=== PATIENT | male | born 1940 | race Caucasian/White ===

== ENCOUNTER → 2023-05-24 11:34 | Outpatient (REF) | payer MEDICARE, SELFPAY ==
[2023-05-24 12:51] LABS: % Basophils 0.6 % (0-2); % Immature Granulocytes 0.4 % (0-0.5); % Monocytes 9.2 % (1.7-9.3); % Neutrophils 75.8 % (42.2-75.2); Absolute Monocytes 0.7 10^3/uL (0.1-0.6); Absolute Neutrophils 5.5 10^3/uL (1.4-6.5); Hematocrit 38.4 % (39.0-52.0); Hemoglobin 12.5 g/dL (13.0-18.0); Mean Corp Hgb Conc. 32.6 g/dL (33.0-37.0); Mean Corpuscular Hgb 28.9 pg (27.0-31.0); Mean Corpuscular Volume 88.7 fL (80.0-94.0); Mean Platelet Volume 11.9 fL (7.4-10.4); Nucleated Red Blood Cells % 0 % (-); Platelet Count 138 10^3/uL (130-400); Red Blood Cell Count 4.33 10^6/uL (4.70-6.10); Red Cell Dist. Width 12.7 % (11.5-14.5); White Blood Cell Count 7.3 10^3/uL (4.8-10.8)
== END ==
LOC: RCS 11:34
PROVIDERS: ATTENDING PHYSICIAN Orthopaedic Surgery; FAMILY PHYSICIAN Family Medicine; REFERRING PHYSICIAN Nurse Practitioner Pediatrics
DX: Z01.818 Encounter for other preprocedural examination (principal)
CPT/HCPCS: 36415; 85025; 93005

== ENCOUNTER 2023-06-01 06:32 | Day surgery (SDC) | payer MEDICARE, SELFPAY ==
[2023-06-01] VITALS (10 sets, daily range): BP systolic 134–175; BP diastolic 68–98; BMI 28.1
[2023-06-01] MEDS: CELEBREX 200 MG PO (10:16)
[2023-06-01] MEDS: NORMOSOL-R 1000 IV ×2 (10:17→14:50)
[2023-06-01] MEDS: TYLENOL 1000 MG PO (10:17)
--- NOTE | 2023-06-01 14:30 | CON.HOSP ---
Family Physician
-
Family Physician: INTERVIEWE UNKNOWN - PT NOT
Chief Complaint
-
LUE contracture relief
History of Present Illness
82-year-old male, with past medical history of coronary artery disease, aortic valve stenosis, hyperlipidemia, hypertension, Parkinson's disease, prostate cancer, bladder cancer, who underwent left hand contraction relief surgery by orthopedic on
DOA.
Hospitalist service was consulted to follow along for his several chronic medical conditions.
Pt seen in PACU. Clinically stable. He is slow to respond to questions which apparently is his baseline (has some expressive aphasia)
Medical History
Past Medical History
Past Medical History: Reports Other
Additional Past Medical History:
Coronary artery disease
aortic valve stenosis
hyperlipidemia
hypertension
Parkinson's disease
prostate cancer
bladder cancer
Past Surgical History: Reports Other
Additional Past Surgical History:
LUE contracture relief surgery 05/31
Social History
Living: With Family
Family History
Family History: Reviewed & Not Pertinent
Allergies / Home Medications
Allergies reflects when Allergies were last updated in [employer]
Home Medications with original date entered in [employer]
Allergy/Medication List:
Allergies
Allergy/AdvReac Type Severity Reaction Status Date / Time
latex [Latex] Allergy Itching, Verified 06/01/23 10:05
swelling
Sulfa (Sulfonamide Allergy Swelling Verified 06/01/23 10:05
Antibiotics)
Home Medications
aspirin 81 mg tablet,delayed release 81 mg PO NOON 01/13/13
lisinopril 40 mg tablet 40 mg PO 1400 01/13/13
metoprolol succinate 25 mg tablet,extended release 24 hr 25 mg PO HS 08/03/16
carbidopa 25 mg-levodopa 100 mg tablet 1 tab PO .SEVENTIMESDAILY 05/27/23
ezetimibe 10 mg tablet 10 mg PO NOON 05/27/23
hyoscyamine sulfate 0.125 mg tablet 0.125 mg PO QID 05/27/23
isosorbide mononitrate 30 mg tablet,extended release 24 hr 30 mg PO HS 05/27/23
pravastatin 80 mg tablet 80 mg PO HS 05/27/23
Review of Systems
-
Constitutional: Reports No Symptoms
Physical Exam
Vital Signs
Vital Signs
Temp Pulse Resp BP Pulse Ox
36.6 C 57 15 145/68 92
06/01/23 13:48 06/01/23 14:15 06/01/23 14:15 06/01/23 14:15 06/01/23 14:15
Physical Exam
General: Well Developed, Well Nourished and Comfortable
HEENT: Normocephalic, Moist Mucous Membranes, Atraumatic and Oxygen (2L NC)
Respiratory: Clear and Non Labored Respirations; Negative Accessory Resp Muscle Use
Cardiac: S1/S2, Regular Rhythm and Murmur (systolic); Negative Rub
GI: Soft, Non Tender and Non Distended
Rectal: Deferred by Provider
Musculoskeletal: No Clubbing, No Cyanosis and No Edema
Skin: Negative Rash
Neuro: Awake and Alert
Psych: Calm
Impression / Plan
-
82-year-old male, with past medical history of coronary artery disease, aortic valve stenosis, hyperlipidemia, hypertension, Parkinson's disease, prostate cancer, bladder cancer, who underwent left hand contraction relief surgery by orthopedic on
DOA.
Hospitalist service was consulted to follow along for his several chronic medical conditions.
Pt seen in PACU. Clinically stable. He is slow to respond to questions which apparently is his baseline (has some expressive aphasia)
A/P:
# Left hand contraction relief surgery by orthopedic on DOA 06/01/2023
Post op care per surgery
Continue prior to admission Imdur, lisinopril, Toprol with holding parameters
Chronic medical conditions:
# coronary artery disease
# aortic valve stenosis
# hyperlipidemia
# hypertension
# Parkinson's disease
cont PRODUCT MARKETER Sinemet
Pureed diet for now ( indicated he is on modified diet at home), SPL eval
# prostate cancer
# bladder cancer
DVT ppx: per surgery
FC
--- NOTE | 2023-06-01 15:45 | PTCARENOTE ---
Recieved pt from PACU. AAOx2, denies any pain or discomfort. Oriented to unit, all safety measures in place.
--- NOTE | 2023-06-01 16:32 | PHANOTE ---
06/01/2023, med rec tech, spoke to spouse to obtain pt.'s med. history; per spouse, pt. takes Lisinopril 40 mg Daily; however, after calling pt.'s pharmacy ([address] [address]), they state that he has filled Lisinopril 10 mg
on 11/07/2022 for a 90-day supply with instructions to take one tablet daily. This med. is not in [facility]. Could not confirm this med.
[2023-06-01] MEDS: SINEMET 25-100 1 TABLET PO ×2 (17:34→20:21)
[2023-06-01] MEDS: TYLENOL 650 MG PO ×2 (17:34→20:19)
[2023-06-01] MEDS: COLACE 100 MG PO (20:18)
[2023-06-01] MEDS: SENOKOT 17.1999999999999993 MG PO (20:19)
[2023-06-01] MEDS: PRAVACHOL 80 MG PO (20:19)
[2023-06-01] MEDS: TOPROL XL 25 MG PO (20:19)
[2023-06-01] MEDS: IMDUR (EXTENDED RELEASE) 30 MG PO (20:19)
--- NOTE | 2023-06-01 22:45 | PTCARENOTE ---
Pt found pulling off kip wrap and kerlix. Very agitated and confused, yelling at RN to take off dressing and to get out of his site. Attempted to reorient pt to hospital and that he just had surgery on that hand and we cannot remove the dressings,
but unable to reorient. Reinforced dressing to left hand. POWDER SHOVELER made aware, order for right handed mitt. Applied, and educated pt on importance of not touching surgical site and dressing. Pt less agitated at this time, however still confused. Plan of
care ongoing.
[2023-06-02] MEDS: TYLENOL PO ×2 (00:30→05:20)
[2023-06-02 03:55] VITALS: BP 146/78
[2023-06-02] MEDS: SINEMET 25-100 1 TABLET PO ×3 (05:44→15:19)
[2023-06-02 07:00] VITALS: BP 148/76
--- NOTE | 2023-06-02 07:33 | W.PN.UPDATE ---
Update Note
Progress Note Update
POD#1 s/p left hand contracture release with Dr. Stephens on 06/01/2023.
Patient reports doing very well this morning and has no complaints of pain in his left hand at this time. Afebrile. VSS.
WasStates he is ready for discharge home.
Splint in place of LUE is c/d/i. Able to wiggle fingers outside of the splint. Minimal swelling of digits. Cap refill < 2 sec.
Will plan for PT/OT to see patient today, but looks good for discharge home today. May put some weight on left upper extremity if needed for assistance.
Keep splint clean and dry. F/u in office in 14 days for suture removal.
D/c home later today.
--- NOTE | 2023-06-02 08:30 | PTOTSP ---
Speech Language Pathology
Pt seen for clinical bedside swallow evaluation. When POLICY ADVISER entered room, pt on phone with , who asked to speak to POLICY ADVISER. stated pt has worked with POLICY ADVISER at home extensively in the past and is on pureed foods/thin liquids. She also asked if pt
could go to rehab, which was passed on to MD.
P.O. trials of puree and thin liquids provided, as this is pt's baseline diet. Adequate oral phase with these limited consistencies with no overt signs of aspiration.
Recommend:
(1) Continue baseline diet of IDDSI Level 4 (Puree) and thin liquids.
(2) Aspiration precautions: sit upright, set up assist, slow rate.
(3) Meds as tolerated
(4) POLICY ADVISER to sign off. Please reconsult as indicated.
[2023-06-02 09:28] VITALS: BP 130/73; PULSE 53; O2SAT 96
[2023-06-02 09:33] VITALS: BP 130/73; PULSE 53; O2SAT 96
[2023-06-02] MEDS: TYLENOL 650 MG PO ×3 (10:41→15:18)
[2023-06-02] MEDS: SINEMET 25-100 2 TABLET PO (10:41)
[2023-06-02] MEDS: SENOKOT 17.1999999999999993 MG PO (10:42)
[2023-06-02] MEDS: COLACE 100 MG PO (10:42)
[2023-06-02] MEDS: NORMOSOL-R 1000 IV (10:45)
--- NOTE | 2023-06-02 10:55 | PTCARENOTE ---
R hand mitt removed this am. Patient AAOx3. is now in room with patient.
--- NOTE | 2023-06-02 12:31 | W.PN.HOSP.TC ---
Today's Communication/Plan
-
see A/P
Assessment / Plan
Assessment / Plan
82-year-old male, with past medical history of coronary artery disease, aortic valve stenosis, hyperlipidemia, hypertension, Parkinson's disease, prostate cancer, bladder cancer, who underwent left hand contraction relief surgery by orthopedic on
DOA.
Hospitalist service was consulted to follow along for his several chronic medical conditions.
Pt seen in PACU. Clinically stable. He is slow to respond to questions which apparently is his baseline (has some expressive aphasia)
A/P:
# Left hand contraction relief surgery by orthopedic on DOA 06/01/2023
Post op care per surgery
Continue prior to admission Imdur, lisinopril, Toprol with holding parameters
PT OT post op recc SNF for continued balance training
CM on board to assist SNF disposition
Chronic medical conditions:
# coronary artery disease
# aortic valve stenosis
# hyperlipidemia
# hypertension
# Parkinson's disease
cont PARTS DRIVER Sinemet
Cont Pureed diet/ thin liquid as from PARTS DRIVER
# prostate cancer
# bladder cancer
DVT ppx: per surgery
FC
DW at bedside
Anticipated Discharge: Today
Subjective/Interval History
-
Date of Service: June 02, 2023
Objective Data
-
Labs:
Laboratory Results
06/02/23
07:30
WBC Pending
Hgb Pending
Hct Pending
Plt Count Pending
Sodium Pending
Potassium Pending
Chloride Pending
Carbon Dioxide Pending
BUN Pending
Creatinine Pending
Glucose Pending
Calcium Pending
Vital Signs:
Vital Signs
Temp Pulse Resp BP Pulse Ox
36.8 C 57 18 148/76 97
06/02/23 07:00 06/02/23 07:00 06/02/23 07:00 06/02/23 07:00 06/02/23 07:00
I&O
06/01/23 06/02/23 06/03/23
06:59 06:59 06:59
Intake Total 100 / 100
Balance 100 / 100
Review of Systems
-
All other systems: Reviewed and negative
Physical Exam
-
General: Well Developed, No Apparent Distress, Comfortable and Appears Chronically Ill; Negative Respiratory Distress
HEENT: Normocephalic, Atraumatic, Nose Appears Normal and Ears Appear Normal; Negative Oxygen
Respiratory: Clear to Auscultation and Non Labored Respirations; Negative Accessory Resp Muscle Use
Cardiac: Regular Rhythm and S1/S2
GI: Soft, Nontender, Nondistended and Normal Bowel Sounds
Skin: Warm and Dry
Neuro: Awake and Alert
Psych: Calm
[2023-06-02] MEDS: ASPIR LOW (ENTERIC COATED) 81 MG PO (12:56)
[2023-06-02 13:30] LABS: Hemoglobin 11.9 g/dL (13.0-18.0); Mean Corp Hgb Conc. 32.2 g/dL (33.0-37.0); Mean Corpuscular Hgb 28.5 pg (27.0-31.0); Mean Corpuscular Volume 88.7 fL (80.0-94.0); Mean Platelet Volume 12.9 fL (7.4-10.4); Platelet Count 157 10^3/uL (130-400); Red Blood Cell Count 4.17 10^6/uL (4.70-6.10); White Blood Cell Count 9.4 10^3/uL (4.8-10.8)
[2023-06-02 13:48] LABS: Blood Urea Nitrogen 21 mg/dl (9-20); Calcium 8.1 mg/dl (8.4-10.2); Carbon Dioxide 26 mmol/L (22-30); Chloride 106 mmol/L (98-107); Estimated Creatinine Clearance 83 ml/min; Glucose 118 mg/dl (70-99); Potassium 4.2 mmol/L (3.5-5.1); Sodium 136 mmol/L (135-145); eGFR > 60.00
--- NOTE | 2023-06-02 14:06 | CM ---
Addendum entered by Francy Rodriguez RN 06/02/23 15:23:
[facility]
As per Mary pt accepted with SNF waiver. notified. Pt is his own wheelchair . WC van set up with [facility]. given # [phone] for payment for wc van. agrees with dc to SNF via wc van.
[facility]
Report [phone]

PLAN To [facility]
Original Note:
Alert awake patient who lives with his Patricia who lives in a 1 story home with ramp to enter and bed and bathroom on first floor. He is assisted in all activities of daily living.He has a wheelchair walker grab bars. 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
and use [employer] bus.
PT OT recommended SNF Max assist of 2.
Pt is under post surgical recovery. Spoke with Mary at [facility] with Medicare.
Explained all to she requested [facility] and [facility]Hallie said [facility] has no beds .
Kaylah is checking [facility]
Had VN hx Has [facility] now/SNF history Hx.
Pharmacy [facility]
PCP DR Agustin Augustin
PLAN SNF if bed located and waiver accepted
[2023-06-02 15:00] VITALS: BP 138/73
[2023-06-02] MEDS: ZESTRIL 40 MG PO (15:19)
[2023-06-02 15:28] VITALS: BMI 28.1
--- NOTE | 2023-06-02 16:49 | W.DS.TRANS ---
DC Summary - General Surgery Physician Assistant
-
Discharge Instructions:
Sleep Apnea Risk Intermediate
Discharge Diagnosis/Procedures S/p left hand contracture release
Diet Other diet
Additional Diets pureed diet with thin liquid
Activity As tolerated
Additional Activity Limit weight bearing on left arm, but may put
weight on it in the splint for transfers as
needed.
Driving Restrictions As prior to admission
Bathing Restrictions Keep splint on left upper extremity dry.
Instructions:
Stand-Alone Forms:
Changes to Home Medications: No
Discharge Medications:
DC Medications w/original date entered in [employer]
aspirin 81 mg tablet,delayed release 81 mg PO QPM 01/13/13
lisinopril 40 mg tablet 40 mg PO DAILY 01/13/13
metoprolol succinate 25 mg tablet,extended release 24 hr 25 mg PO HS 08/03/16
carbidopa 25 mg-levodopa 100 mg tablet 1 tab PO 5/D@0600,12,15,18,21 05/27/23
ezetimibe 10 mg tablet 10 mg PO DAILY@1300 05/27/23
hyoscyamine sulfate 0.125 mg tablet 0.125 mg PO QID 05/27/23
isosorbide mononitrate 30 mg tablet,extended release 24 hr 30 mg PO HS 05/27/23
pravastatin 80 mg tablet 80 mg PO QPM 05/27/23
carbidopa 25 mg-levodopa 100 mg tablet 2 tab PO DAILY@0900 06/01/23
diclofenac sodium 1 applic topical HS apply to B/L knees 06/01/23
triamcinolone acetonide 32 mg intra-articular suspension ext.releas (Zilretta) 32 mg intra-articular [id number] 06/01/23
acetaminophen 325 mg tablet 650 mg PO Q4HWA moderate pain 10 days #120 tabs 06/02/23
acetaminophen 325 mg tablet 650 mg PO SDS-[id number] PRN mild pain 30 days #30 tabs 06/02/23
Home Medication Changes
Pending Results: No
== END 2023-06-02 16:09 ==
LOC: SDS 06:32
PROVIDERS: ATTENDING PHYSICIAN Orthopaedic Surgery; CONSULT PHYSICIAN Internal Medicine
DX: G20.B1 Parkinson's disease with dyskinesia, without mention of fluctuations (principal); M24.542 Contracture, left hand
CPT/HCPCS: 25310 ×2; 64721; 80048; 85027; 92610; 97163; 97167

== ENCOUNTER 2023-08-23 18:16 | Inpatient (IN) | payer MEDICARE, SELFPAY ==
[2023-08-23 18:24] VITALS: BP 167/123
[2023-08-23 18:33] VITALS: BP 150/63
--- NOTE | 2023-08-23 18:33 | HPS.HSE ---
Family Physician
-
Family Physician: Agustin Augustin
Chief Complaint
-
Aortic stenosis, transfer from [facility]
History of Present Illness
82-year-old male who is a transfer from [facility] was sent for severe aortic stenosis. Also had episodes of nonsustained SVT. He was treated with amiodarone after second dose he developed a rash to his lower legs was given IV Benadryl
there which seemed to improve. It was also noted he had thrombocytopenia. Patient is alert and oriented to name and current place but not history he does have past medical history of dementia and Parkinson's disease he does have baseline slurred
speech with lower lip swelling. He denies headache, chest pain, palpitations, shortness of breath, abdominal pain, nausea, vomiting, diarrhea, urinary symptoms.
Past medical history CAD, severe aortic valve stenosis, NSVT August 2023 [facility] rash with amiodarone HTN, HLD, Parkinson's disease on pureed Diet/thin liquids, prostate cancer, bladder CA
Medical History
Past Medical History
Past Medical History: Reports Other
Additional Past Medical History:
CAD, aortic valve stenosis, HTN, HLD, dementia, Parkinson's disease on pureed Diet/thin liquids, prostate cancer, bladder CA
Past Surgical History: Reports Other
Additional Past Surgical History:
Left hand contracture repair 06/01/2023
Spinal surgery
Social History
Tobacco: Non-smoker
Alcohol: None
Personal: ( with history of dementia)
Living: With Family ()
Employment: Retired
Family History
Family History: Unable to Obtain
Allergies / Home Medications
Allergies reflects when Allergies were last updated in [facility]
Home Medications with original date entered in [employer]
Allergy/Medication List:
Allergies
Allergy/AdvReac Type Severity Reaction Status Date / Time
latex [Latex] Allergy Itching, Verified 06/01/23 10:05
swelling
Sulfa (Sulfonamide Allergy Swelling Verified 06/01/23 10:05
Antibiotics)
Home Medications
aspirin 81 mg tablet,delayed release 81 mg PO QPM 01/13/13
lisinopril 40 mg tablet 40 mg PO DAILY 01/13/13
metoprolol succinate 25 mg tablet,extended release 24 hr 25 mg PO HS 08/03/16
carbidopa 25 mg-levodopa 100 mg tablet 1 tab PO 5/D@0600,12,15,18,21 05/27/23
ezetimibe 10 mg tablet 10 mg PO DAILY@1300 05/27/23
hyoscyamine sulfate 0.125 mg tablet 0.125 mg PO QID 05/27/23
isosorbide mononitrate 30 mg tablet,extended release 24 hr 30 mg PO HS 05/27/23
pravastatin 80 mg tablet 80 mg PO QPM 05/27/23
carbidopa 25 mg-levodopa 100 mg tablet 2 tab PO DAILY@0900 06/01/23
diclofenac sodium 1 applic topical HS apply to B/L knees 06/01/23
triamcinolone acetonide 32 mg intra-articular suspension ext.releas (Zilretta) 32 mg intra-articular [id number] 06/01/23
acetaminophen 325 mg tablet 650 mg (2 x 325 mg) PO Q4HWA moderate pain 10 days #120 tabs 06/02/23
acetaminophen 325 mg tablet 650 mg (2 x 325 mg) PO [id number] PRN mild pain 30 days #30 tabs 06/02/23
Medication reconciliation to be updated by nurse if she is able to obtain from patient's family
Review of Systems
-
History Source: Patient and Other (Transfer records from [facility])
A 12 point ROS was completed and negative except as noted: Yes
Constitutional: Denies Fever or Chills
EENT: Denies Sore Throat or Runny Nose
Respiratory: Denies Cough or Trouble Breathing
Cardiac: Denies Chest Pain, Diaphoresis, Palpitations or Syncope
Abdomen/GI: Denies Abdominal Pain, Nausea, Vomiting, Diarrhea, Constipated, Bloody Stools or Black Stools
: Denies Dysuria, Frequency, Flank Pain, Incontinence, Difficulty Voiding or Urgency
Musculoskeletal: Denies Joint Pain or Edema
Skin: Denies Itching or Rash
Neurological: Denies Dizzy, Headache or Weakness
Hematologic/Lymphatic: Reports No Symptoms
Psych: Reports Calm
Physical Exam
Physical Exam
General: Comfortable and Conversant; No Pain or Fever
HEENT: NormoCephalic, Anicteric, Moist mucous membranes, PERRLA, [place] Conjunctivae, No Ptosis and Other (Slurring of speech chronic, lower lip edema ? Chronic)
Respiratory: Clear; No Wheezes, Rales or Rhonchi
Cardiac: S1/S2, Regular Rhythm and Murmur (For over 6 systolic); No Rub, Gallop or Peripheral Edema
Breast: Deferred by me
GI: Soft, Non Tender, Non Distended, Normal Bowel Sounds and No Hepatosplenomegaly
Rectal: Deferred by Provider
Genito-urinary: Deferred by me
Musculoskeletal: No Clubbing, No Cyanosis and No Edema
Skin: Warm and Dry
Neuro: Awake, Alert, Oriented (To name, place but not history) and No Sensory Deficits; No Slurred Speech, Facial Droop or Tremors
Psych: Calm
Impression/Plan
-
Impression/plan:
Admit to IVU
#Severe aortic stenosis
-N.p.o. for cardiac cath in a.m.
-Consult CBC cardiology
-Continue Imdur 30 mg at bedtime, metoprolol succinate 25 mg at bedtime
-Check BMP/mag
-Check EKG
2D echo 08/21/2023: EF 55 to 60%, no wall abnormalities, moderate/severe dilated LA, severe AAS peak mean gradients 87 mmHg 4/55.6 mmHg, mild to moderate MR, mild TR
2D echo 09/08/2022: EF 65-70%, hyperdynamic LV wall motion, severe calcific aortic stenosis with mean gradient 46 mmHg
#Hx nonsustained VT episodes August 2023 at [facility]
-Patient was started on amiodarone had development of rash to legs was given Benadryl at prior hospital which is currently disappeared
#Recent thrombocytopenia
Pending PLT
#HTN�benign
Continue lisinopril 40 mg daily, metoprolol succinate 25 mg at bedtime, Imdur 30 mg at bedtime with hold parameters
#HLD
-Check lipid profile
-Continue Zetia 10 mg daily, pravastatin 80 mg every afternoon
#Parkinson's disease on pur�ed diet/thin liquids per May chart
-Speech swallow eval
-Continue carbidopa levodopa
#Dementia Hx
Patient oriented to name, place but not history has chronic slurring of speech
#Hx prostate cancer per chart
#Hx bladder CA per chart
DVT prophylaxis
-Subcu Lovenox pending Hgb and platelets
Full code per transfer chart from [facility]
[2023-08-23 18:34] VITALS: BMI 23.6
--- NOTE | 2023-08-23 18:39 | W.PN.UPDATE ---
Update Note
Progress Note Update
I saw and examined the patient.
The FITTING ROOM ATTENDANT or PA's note was reviewed and I agree with the note.
Comment: 82 y/o M who presents as a direct admission for evaluation for TAVR for his severe . Was at [facility] and had a syncopal episode due to NSVT. Of note, pt had allergic rxn to . Case discussed with Dr. Franks on the phone. Due to the
patient's advanced Parkinson's the patient's family was not interested in aggressive care until recently.
150/63, 52, 18, 98.9 F, 96% RA
NAD, awake and alert, appears chronically ill
donald, reg rhythm, normal S1/S2, 4/6 RAUL
CTAB anteriorly
CN2-12 intact, resting, pill rolling tremor
Severe :
-for cardiac cath tomorrow (pre-TAVR eval)
-cardiology c/s
-tele
-check BMP, Mg
-check ECG
Essential HTN:
-cont ACEi/BB/Imdur (with holding parameters)
Parkinson's disease:
-cont Sinemet
Discussed with Dr. Franks
FULL/Lovenox (pending Hb, plts, etc) + SCDs
--- NOTE | 2023-08-23 19:00 | PTCARENOTE ---
pt admitted as transfer from [facility]. admitted to room 2250. Pt AAOx2- disoriented to time stated it was the wrong year but able to state month. history of parkinsons, speech garbled, difficult to understand. left hand/fingers contracted. SB on
telemetry heart rate in 50s. pulses palpable. trace lower extremity edema. pt on room air, sat 96%. lung sounds diminished. active bowel sounds. incontinent of urine- male external device intact. two small open areas noted on sacrum/ischum- wound
consult placed. see worklist for full nursing assessment and interventions. hospitalist at bedside to assess.
[2023-08-23 19:08] LABS: Hematocrit 36.7 % (39.0-52.0); Hemoglobin 12.2 g/dL (13.0-18.0); Mean Corp Hgb Conc. 33.2 g/dL (33.0-37.0); Mean Corpuscular Volume 87.2 fL (80.0-94.0); Mean Platelet Volume 12.5 fL (7.4-10.4); Platelet Count 104 10^3/uL (130-400); Red Blood Cell Count 4.21 10^6/uL (4.70-6.10); Red Cell Dist. Width 13.7 % (11.5-14.5); White Blood Cell Count 4.7 10^3/uL (4.8-10.8)
[2023-08-23 19:19] LABS: Blood Urea Nitrogen 16 mg/dl (9-20); Calcium 8.5 mg/dl (8.4-10.2); Carbon Dioxide 28 mmol/L (22-30); Chloride 105 mmol/L (98-107); Estimated Creatinine Clearance 68 ml/min; Glucose 128 mg/dl (70-99); Potassium 4.4 mmol/L (3.5-5.1); Sodium 140 mmol/L (135-145); eGFR > 60.00
[2023-08-23] MEDS: NSS 1000 IV (19:51)
[2023-08-23 19:53] VITALS: BP 162/70
--- NOTE | 2023-08-23 19:58 | PTCARENOTE ---
pt unable to provide updated medication list at this time- hospitalist aware
[2023-08-23] MEDS: SINEMET 25-100 1 TABLET PO (20:30)
[2023-08-23] MEDS: PRAVACHOL 80 MG PO (20:30)
[2023-08-23 22:10] VITALS: BP 143/83
[2023-08-24] VITALS (11 sets, daily range): BP systolic 85–164; BP diastolic 57–77; PULSE 53; O2SAT 97; BMI 23.6
[2023-08-24 06:01] LABS: % Basophils 0.4 % (0-2); % Eosinophils 2.9 % (0-6); % Immature Granulocytes 0.4 % (0-0.5); % Lymphocytes 27.8 % (20.5-51.1); % Monocytes 6.1 % (1.7-9.3); % Neutrophils 62.4 % (42.2-75.2); Absolute Eosinophils 0.2 10^3/uL (0-0.7); Absolute Lymphocytes 1.5 10^3/uL (1.2-3.4); Absolute Monocytes 0.3 10^3/uL (0.1-0.6); Absolute Neutrophils 3.5 10^3/uL (1.4-6.5); Hematocrit 41.2 % (39.0-52.0); Hemoglobin 13.2 g/dL (13.0-18.0); Mean Corpuscular Hgb 28.9 pg (27.0-31.0); Mean Corpuscular Volume 90.2 fL (80.0-94.0); Mean Platelet Volume 12.8 fL (7.4-10.4); Nucleated Red Blood Cells % 0 % (-); Platelet Count 105 10^3/uL (130-400); Red Blood Cell Count 4.57 10^6/uL (4.70-6.10); Red Cell Dist. Width 13.6 % (11.5-14.5); White Blood Cell Count 5.5 10^3/uL (4.8-10.8)
[2023-08-24 06:22] LABS: ALT (SGPT) < 10 U/L (0-50); AST (SGOT) 20 U/L (17-59); Albumin 3.4 g/dl (3.5-5.0); Blood Urea Nitrogen 15 mg/dl (9-20); Calcium 8.7 mg/dl (8.4-10.2); Carbon Dioxide 24 mmol/L (22-30); Estimated Creatinine Clearance 68 ml/min; Glucose 90 mg/dl (70-99); Total Bilirubin 0.5 mg/dl (0.2-1.3); Total Cholesterol 92 mg/dl (50-199); Total Protein 5.8 g/dl (6.3-8.2); Triglyceride 65 mg/dl (10-149); Very Low Density Lipoprotein 13 mg/dl (0-30); eGFR > 60.00
[2023-08-24 06:31] LABS: Alkaline Phosphatase 69 U/L (38-126); Chloride 108 mmol/L (98-107); HDL Cholesterol 42 mg/dl; LDL Cholesterol, Calculated 37 mg/dl; Potassium 4.2 mmol/L (3.5-5.1); Sodium 140 mmol/L (135-145)
[2023-08-24] MEDS: SINEMET 25-100 1 TABLET PO ×5 (06:48→21:02)
--- NOTE | 2023-08-24 08:00 | W.PN.HOSP.TC ---
Today's Communication/Plan
-
see bold
Assessment / Plan
Assessment / Plan
Gen: NAD, Awake and alert, appears chronically ill
Eyes: EOMI, PERRLA, no scleral icterus.
Neck: supple.
CV: donald, reg rhythm, +S1/S2, 2/6 RAUL
Resp: CTAB anteriorly, no rales, wheezes, or rhonchi.
Abd: +BS, soft, NT, ND
Skin: No rashes.
Neuro: CN 2-12 intact, non-focal.
Psych: Normal mood and affect.
Echo 09/08/2022: EF 65-70%, hyperdynamic LV wall motion, severe calcific aortic stenosis with mean gradient 46 mmHg
Severe :
-for cardiac cath today (pre-TAVR eval)
-cardiology c/s
-tele
Other problems:
Essential HTN: cont BB/Imdur (with holding parameters)
Parkinson's disease with dementia: cont Sinemet
Chronic thrombocytopenia
HLD: cont statin/Zetia
Discussed with Dr. Franks
FULL/Lovenox + SCDs
Anticipated Discharge: > 48 hours
Subjective/Interval History
-
Date of Service: August 24, 2023
Denies CP/SOB.
Objective Data
-
Labs:
Laboratory Results
08/24/23
05:53
WBC 5.5
Hgb 13.2
Hct 41.2
Plt Count 105 L
Sodium 140
Potassium 4.2
Chloride 108 H
Carbon Dioxide 24
BUN 15
Creatinine 0.8
Glucose 90
Calcium 8.7
Total Bilirubin 0.5
AST 20
ALT < 10
Alkaline Phosphatase 69
Vital Signs:
Vital Signs
Temp Pulse Resp BP Pulse Ox
98.2 F 49 20 107/77 97
08/24/23 07:08 08/24/23 06:30 08/24/23 07:08 08/24/23 05:47 08/24/23 07:08
I&O
08/23/23 08/24/23 08/25/23
06:59 06:59 06:59
Output Total 200 / 200
Balance -200 / -200
--- NOTE | 2023-08-24 08:14 | CON.CAR ---
Addendum entered and electronically signed by Tram Franks MD 08/24/23 10:03:
I saw and examined the patient.
The SUPERVISOR ERECTION SHOP's note was reviewed and I agree with the note.
Comment: No complaints of chest pain, lightheadedness or shortness of breath. 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 He has progressive Parkinson's
disease, with increasing immobility and dementia. He is unreliable historian due to his dementia. I reached out to the point of contact listed in the chart as Suzanne Zaragozatobi who is his opuwnqya-ar-gus. She reports to me that his sons are the pol[place]
of deputy attorney general but she person to be contacted. It was a surprise to me that she did was not aware of his severe valvular disease. Have had multiple conversations with Oskar Gabe and Patriciavenancio Rodriguez as an outpatient. Apparently complained of kidney
pain to his family over the weekend and presented to [facility]. [facility] reports a single episode of nonsustained ventricular tachycardia for 38 beats. It does not appear this was symptomatic. He had a trial of amiodarone x 2
and had rashes and welts to both his infusions. He is sent to here to determine whether or not he should have a catheterization. In the outpatient setting, he has decided that he did not want any evaluation or further invasive treatments for his
aortic stenosis Currently, he is in sinus bradycardia with only idioventricular rhythm seen on the monitor. He has no chest pain or pressure. Echocardiogram at [place] did show severe progressive aortic stenosis with a normal LVEF. On exam he
is cachectic with prominent zygomatic arches, no buccal fat and bitemporal wasting. He is lipsmacking with his tongue. He has a regular rate and rhythm with a normal S1-S2 2 out of 6 crescendo decrescendo murmur in the right upper sternal border.
Lungs are clear to auscultation. Abdomen is soft nondistended. Hands show extensive contractures and deformity. Overall, it is striking to me the progression of Oskar's Parkinson's and cachexia. He is 40 pounds down from when I last saw him in
mid January. Suzanne states he is mostly in the wheelchair and refuses to walk for the family but does work with PT. He recently sold his two-story house and is now living in a 1 floor trailer and an over 55 community with his . I explained to
her the difficult situation as his progressive Parkinson's disease and weight loss are very concerning. He is not a candidate for open heart surgery and definitively the family would not want this. I discussed that a catheterization at this
moment, would not likely change his ultimate outcome. I think his mortality with his Parkinson's is likely less than 1 year given his significant weight loss. And this would limit his candidacy for TAVR. However, if they would like an official
evaluation by the TAVR team this could be arranged. In regard to his NSVT, none further on the monitor. He did not tolerate amiodarone. Sotalol is contraindication with his significant baseline bradycardia. For now we will continue beta-toby.
In regards of his goals of care, she thinks the family wants to limit his suffering, so treating NSVT with aggressive treatments, does not seem to go along with this goal of care. Currently is full code in our computer, there is a living will from
2012 that states DNR. She is uncertain of what the ultimate goal is right now. For now he will need to remain full code. She will converse with her family and hopefully we can come up with a better long-term care plan for him by tomorrow. I can
keep n.p.o. after midnight in the event ongoing arrhythmias are seen and they wish to pursue invasive evaluations. However again I do not think this is in the best interest of the patient. Hospice evaluation seems reasonable. I discussed these
thoughts with Suzanne and Dr. Levine. Time in our conversation was 45 minutes time in his care is 63 minutes.
Original Note:
Consultation
Consultation Request
Date/Time Consultation Requested: 08/23/2023 18:39
Date/Time Consultation Performed: 08/24/2023 08:30
Requesting Provider: SISSY Delgado
Performing Provider: SISSY Monroe for Dr. Franks
Reason for Consultation: NSVT
Medical History
-
Chief Complaint: Weakness
History of Present Illness:
Oskar Rodriguez is an 82-year-old male (known to Dr. 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
what sounds to be a chief complaint of weakness. Reports reflect a 38 beat run of NSVT. Rate not documented. He was found to have a peak troponin of 44 , then trended to 41 (type of troponin unknown). There are no reports of chest pain.
He saw Dr. Franks in the outpatient setting in 01/2023. The plan was for no TAVR and DNR status.
Upon exam, Mr. Rodriguez is very pleasant. He believes it is 1969. He knows he is in [facility]. He does not recall ever being in [place]. He does not know why he is here. He knows the month and day he was born but not the year.
Past Medical History
Past Medical History: CAD, Cancer (Prostate), HTN, Hypercholesterolemia, Valvular Disease (severe aortic stenosis) and Other (Parkinson's disease, dementia)
Past Surgical History: Orthopedic and Urological (Radial perineal prostatectomy [2013])
Social History
Tobacco: Non-Smoker
Alcohol: None
Drug: None
Personal:
Living: With Family
Employment: Retired
Family History
Family History: Reviewed & Not Pertinent
Allergies / Home Medications
Allergy/AdvReac Type Severity Reaction Status Date / Time
amiodarone Allergy Rash Verified 08/24/23 07:58
latex [Latex] Allergy Itching, Verified 06/01/23 10:05
swelling
Sulfa (Sulfonamide Allergy Swelling Verified 06/01/23 10:05
Antibiotics)
�Medication �Instructions �Recorded �Confirmed �Type
aspirin 81 mg tablet,delayed 81 mg PO QPM Blood Clot 01/13/13 06/01/23 History
release Prevention/Tx
lisinopril 40 mg tablet 40 mg PO DAILY 01/13/13 08/03/16 History
metoprolol succinate 25 mg 25 mg PO HS Heart Disease/Condition 08/03/16 06/01/23 History
tablet,extended release 24 hr
carbidopa 25 mg-levodopa 100 mg 1 tab PO 5/D@0600,12,15,18,21 05/27/23 06/01/23 History
tablet Neurological Condition
ezetimibe 10 mg tablet 10 mg PO DAILY@1300 High 05/27/23 06/01/23 History
Cholesterol
hyoscyamine sulfate 0.125 mg tablet 0.125 mg PO QID 05/27/23 06/01/23 History
isosorbide mononitrate 30 mg 30 mg PO HS 05/27/23 06/01/23 History
tablet,extended release 24 hr
pravastatin 80 mg tablet 80 mg PO QPM High Cholesterol 05/27/23 06/01/23 History
carbidopa 25 mg-levodopa 100 mg 2 tab PO DAILY@0900 Neurological 06/01/23 06/01/23 History
tablet Condition
diclofenac sodium 1 applic topical HS apply to B/L 06/01/23 06/01/23 History
knees
triamcinolone acetonide 32 mg 32 mg intra-articular [id number] 06/01/23 06/01/23 History
intra-articular suspension
ext.releas (Zilretta)
acetaminophen 325 mg tablet 650 mg (2 x 325 mg) PO Q4HWA 06/02/23 Rx
moderate pain 10 days #120 tabs
acetaminophen 325 mg tablet 650 mg (2 x 325 mg) PO SDS-Q4HPRN 06/02/23 Rx
PRN mild pain 30 days #30 tabs
Review of Systems
-
Unable to obtain full review of systems at this time due to: Dementia
History Source: Patient
All other systems: Negative unless noted
Respiratory: No Symptoms
Cardiac: No Symptoms
Abdomen/GI: No Symptoms
Physical Exam
Vital Signs
Temp Pulse Resp BP Pulse Ox
98.2 F 49 20 107/77 97
08/24/23 07:08 08/24/23 06:30 08/24/23 07:08 08/24/23 05:47 08/24/23 07:08
Lab Results
08/24/23 05:53
08/24/23 05:53
Physical Exam
General: No Apparent Distress and Comfortable
HEENT: Normocephalic, Anicteric and Moist Mucous Membranes
Respiratory: Clear and Non Labored Respirations
Cardiac: S1/S2 and Irregular Rhythm (III/); Negative Peripheral Edema
Breast: Deferred by me
GI: Soft, Non Tender, Non Distended and Normal Bowel Sounds
Rectal: Deferred by Provider
Genito-urinary: No Costovertebral Tender
Musculoskeletal: No Clubbing, No Cyanosis and No Edema
Skin: Warm and Dry
Neuro: AO x 3
Hematologic/Lymphatic: No Lymphadenopathy
Psych: Calm
Impression / Plan
-
Abnormal troponin, perhaps nonischemic myocardial injury
-Troponin peaked at 44 at [facility]
-He is chest pain-free with a stable EKG, this could be in the setting of severe aortic valve disease
-Update troponin
Aortic stenosis, severe
-Peak/mean gradients of 87/55 mmHg
-He denies shortness of breath
-He does not appear to be in heart failure
-TAVR was declined in the outpatient setting
NSVT, reported on [facility] transfer documentation
-He was given amiodarone which caused a rash, it has since been discontinued
-No NSVT seen on telemetry, some idioventricular rhythm
CAD
-Stable without chest pain
-[facility] 2017: 30% proximal circumflex, pRCA occlusion that is well collateralized
-Continue isosorbide mononitrate
Dementia, not oriented to time (he believes it is 1970), he cannot recall the year he was born
Parkinson's disease, on Sinemet, hand contractures with contracture release 05/2023
Unintentional weight loss, 40 pound loss since 01/2023
Prostate cancer S/P RPP (2012), on Lupron for biochemical recurrence
Data:
Transthoracic echocardiogram 08/21/2023 (report from [facility]):
EF 55 to 60%. Moderate to severely dilated LA. Aortic valve is thickened and calcified with severe aortic valve stenosis. Peak/mean gradients of 87.9/55.6 mmHg with trace to mild aortic regurgitation. ANGEL 0.75 cm. Mild tricuspid regurgitation.
Data Reviewed
-
EKG: Report Reviewed by me (Sinus bradycardia, left axis deviation, rate 55, inverted inferior T waves)
Medical Tests (Nuc Med, Echo etc): Report Reviewed by me (Prior echocardiogram as above)
Labs: Labs Reviewed by me
Old Records: Reviewed ([facility] records)
[2023-08-24] MEDS: SINEMET 25-100 2 TABLET PO (08:46)
[2023-08-24] MEDS: LOW STRENGTH ASPIRIN 324 MG PO (10:14)
[2023-08-24 10:43] LABS: Troponin I 0.014 ng/ml
--- NOTE | 2023-08-24 11:20 | CM ---
Addendum entered by Gris Mann RN 08/24/23 14:27:
Family wanting Hospice. Referral sent to Hospice.
Original Note:
Chart reviewed. Patient was a transfer from [facility] for a TAVR workup. Patient is total care assistance, lives with his in a modular home, [address], which they recently moved to. Currently there is 2 JOANNA, but they are in the
process of putting in a ramp. Patient is currently receiving PT/OT through [facility], but is interested in [facility]. Referral placed to [facility]. Family knows they can not use [facility] while receiving services through [facility]. Family wanting to
continue with [facility]. Plan is for the patient to return home with [facility]. CM to follow
[2023-08-24] MEDS: ZETIA 10 MG PO (12:21)
--- NOTE | 2023-08-24 12:30 | CHAP ---
Father Fredrick Warren of [facility] in [place] gave Oskar the Sacrament of the Sick. Time uncertain.
--- NOTE | 2023-08-24 12:55 | W.PN.UPDATE ---
Update Note
Progress Note Update
I met with the family including his Patricia, son Oskar, son Fredrick, and [id number]. We discussed the prognosis of severe , progressive and severe parkinsonism with a 40 pound weight loss in the last 6 months. He has limited
functional status. He has dementia. I do not think doing more cardiac procedures is indicated as I think his mortality in the next year is high. We discussed the patient's wishes after we reviewed his living will from 2013--DNR, no feeding tubes,
no aggressive measures. I think the most reasonable plan consistent with his wishes is a hospice evaluation. They are agreeable. Will make DNR.
--- NOTE | 2023-08-24 14:21 | PTOTSP ---
Dysphagia Evaluation
Patient with history of oral/pharyngeal dysphagia related to Parkinson's disease and dementia. He is currently at his baseline level of function without signs concerning for aspiration complications but has had a significant weight loss (40 pound
weight loss in the last 6 months). Family meeting with hospice.
Recommend:
1. IDDSI Level 6 Soft/Bite Sized, IDDSI Level 0 Thin Liquids
2. Medications - whole 1 at a time with puree
3. Supervision (given dementia), assist with meal tray set up (given parkinson's with tremors)
4. Strategies: upright to 90 degrees, small single sips/bites, slow rate
5. No further dysphagia therapy warranted at this time. Please reconsult as appropriate.
--- NOTE | 2023-08-24 14:42 | HOSPNOTE ---
Met with family and they are all in agreement to take patient home on hospice services. OOH DNR will be needed and ambulance transport needed. Equipment was ordered and will be delivered. Family is looking into caregivers.
--- NOTE | 2023-08-24 15:29 | PTCARENOTE ---
Pt diaphoretic. VSS. PO temp 98.5. Will monitor.
--- NOTE | 2023-08-24 15:33 | PTCARENOTE ---
Pt noted to have runs of AIVR on the motorized squad captain. Will monitor.
--- NOTE | 2023-08-24 16:54 | PTCARENOTE ---
Pt compained that the rashs on BLE started to itch after his 'sweaty' episode. MD notified. Orders noted.
[2023-08-24] MEDS: BENADRYL 25 MG PO (17:12)
[2023-08-24] MEDS: LOVENOX 40 MG SC (17:12)
--- NOTE | 2023-08-24 17:32 | PTCARENOTE ---
Pt's rash has spread to multiple sites. Benadryl given. Will monitor.
[2023-08-24] MEDS: PRAVACHOL 80 MG PO (18:23)
[2023-08-25] MEDS: BENADRYL 25 MG PO (01:45)
[2023-08-25 04:00] VITALS: BP 150/83
[2023-08-25] MEDS: SINEMET 25-100 1 TABLET PO (04:27)
--- NOTE | 2023-08-25 04:37 | PTCARENOTE ---
Pt awake intermittently t/o the night. Pt reports complaints of back being itchy. WING COVERER notified, order obtained for Benadryl and administered. Pt with scattered reddened areas that seem to come and go and vary in location. Pt able to make all needs
known. new #30CC applied. Magy care provided. Pt repositioned per comfort. Will continue to monitor.
[2023-08-25 04:43] LABS: % Basophils 0.2 % (0-2); % Immature Granulocytes 0.2 % (0-0.5); % Lymphocytes 28.9 % (20.5-51.1); % Monocytes 8.1 % (1.7-9.3); % Neutrophils 62.6 % (42.2-75.2); Absolute Lymphocytes 1.3 10^3/uL (1.2-3.4); Absolute Monocytes 0.4 10^3/uL (0.1-0.6); Absolute Neutrophils 2.9 10^3/uL (1.4-6.5); Hematocrit 39.9 % (39.0-52.0); Hemoglobin 12.7 g/dL (13.0-18.0); Mean Corp Hgb Conc. 31.8 g/dL (33.0-37.0); Mean Corpuscular Hgb 28.8 pg (27.0-31.0); Mean Corpuscular Volume 90.5 fL (80.0-94.0); Mean Platelet Volume 12.9 fL (7.4-10.4); Nucleated Red Blood Cells % 0 % (-); Platelet Count 108 10^3/uL (130-400); Red Blood Cell Count 4.41 10^6/uL (4.70-6.10); Red Cell Dist. Width 13.7 % (11.5-14.5); White Blood Cell Count 4.6 10^3/uL (4.8-10.8)
[2023-08-25 05:38] LABS: ALT (SGPT) < 10 U/L (0-50); AST (SGOT) 21 U/L (17-59); Albumin 3.4 g/dl (3.5-5.0); Alkaline Phosphatase 70 U/L (38-126); Blood Urea Nitrogen 19 mg/dl (9-20); Calcium 8.8 mg/dl (8.4-10.2); Carbon Dioxide 25 mmol/L (22-30); Chloride 107 mmol/L (98-107); Estimated Creatinine Clearance 68 ml/min; Glucose 95 mg/dl (70-99); Potassium 4.3 mmol/L (3.5-5.1); Sodium 139 mmol/L (135-145); Total Bilirubin 0.5 mg/dl (0.2-1.3); Total Protein 5.6 g/dl (6.3-8.2); eGFR > 60.00
--- NOTE | 2023-08-25 07:09 | W.PN.HOSP.TC ---
Addendum entered and electronically signed by Roge Levine MD 08/25/23 09:32:
Pancytopenia
Addendum entered and electronically signed by Roge Levine MD 08/25/23 09:18:
Total time spent on d/c = 31 min. This included today's physical exam, progress note, review of laboratory and diagnostic data, preparation of discharge documents and prescriptions, and discussions about the pt's hospital course and discharge plan
with the patient and other medical equipment repair technician involved in the patient's care.
Original Note:
Today's Communication/Plan
-
d/c to hospice
Assessment / Plan
Assessment / Plan
Gen: remains NAD, Awake and alert, appears chronically ill
Eyes: EOMI, PERRLA, no scleral icterus.
Neck: supple.
CV: donald, reg rhythm, +S1/S2, 3/6 RAUL
Resp: remains CTAB anteriorly, no rales, wheezes, or rhonchi.
Abd: +BS, soft, NT, ND
Skin: No rashes.
Neuro: CN 2-12 intact, non-focal.
Psych: Normal mood and affect.
Echo 09/08/2022: EF 65-70%, hyperdynamic LV wall motion, severe calcific aortic stenosis with mean gradient 46 mmHg
Severe :
-was transferred from [facility] for cath for pre-TAVR eval. Now it has been decided for the patient to go on hospice.
Other problems:
Essential HTN: cont BB/Imdur (with holding parameters)
Parkinson's disease with dementia: cont Sinemet
Chronic thrombocytopenia
HLD: cont statin/Zetia
FULL/Lovenox + SCDs
Anticipated Discharge: Today
Subjective/Interval History
-
Date of Service: August 25, 2023
Denies CP/SOB.
Objective Data
-
Labs:
Laboratory Results
08/25/23
04:24
WBC 4.6 L
Hgb 12.7 L
Hct 39.9
Plt Count 108 L
Sodium 139
Potassium 4.3
Chloride 107
Carbon Dioxide 25
BUN 19
Creatinine 0.8
Glucose 95
Calcium 8.8
Total Bilirubin 0.5
AST 21
ALT < 10
Alkaline Phosphatase 70
Vital Signs:
Vital Signs
Temp Pulse Resp BP Pulse Ox
97.9 F 50 20 150/83 98
08/25/23 04:00 08/25/23 04:30 08/25/23 04:00 08/25/23 04:00 08/25/23 04:00
I&O
08/24/23 08/25/23 08/26/23
06:59 06:59 06:59
Intake Total 1060 / 1060
Output Total 200 / 200 650 / 650
Balance -200 / -200 410 / 410
[2023-08-25 07:30] VITALS: BP 109/61
[2023-08-25] MEDS: ASPIR LOW (ENTERIC COATED) 81 MG PO (08:23)
[2023-08-25] MEDS: SINEMET 25-100 2 TABLET PO (08:23)
--- NOTE | 2023-08-25 08:53 | W.PN.CD ---
Today's Communication / Plan
-
home to hospice
Impression / Plan
-
Assessment :
Abnormal troponin, perhaps nonischemic myocardial injury
Aortic stenosis, severe
-Peak/mean gradients of 87/55 mmHg
NSVT, reported on [facility] transfer documentation
-He was given amiodarone which caused a rash, it has since been discontinued
-No NSVT seen on telemetry, some idioventricular rhythm
CAD
-Stable without chest pain
-[facility] 2017: 30% proximal circumflex, pRCA occlusion that is well collateralized
-Continue isosorbide mononitrate
Parkinson's disease, on Sinemet, hand contractures with contracture release 05/2023--progressive, basically wheel chair bound.
Dementia-progressive down 40lb in the last 6-7 months
Unintentional weight loss, 40 pound loss since 01/2023
Prostate cancer S/P RPP (2012), on Lupron for biochemical recurrence
Plan:
-see notes on family meeting 08/24/23, plan is for discharge to hospice care
Data:
Transthoracic echocardiogram 08/21/2023 (report from [facility]):
EF 55 to 60%. Moderate to severely dilated LA. Aortic valve is thickened and calcified with severe aortic valve stenosis. Peak/mean gradients of 87.9/55.6 mmHg with trace to mild aortic regurgitation. ANGEL 0.75 cm. Mild tricuspid regurgitation.
Physical Exam
Vital Signs/Labs
Vital Signs
Temp Pulse Resp BP Pulse Ox
97.3 F 56 18 109/61 97
08/25/23 07:29 08/25/23 08:00 08/25/23 07:29 08/25/23 07:30 08/25/23 07:29
08/24/23 08/25/23 08/26/23
06:59 06:59 06:59
Actual Weight 68.3 kg
08/25/23 04:24
08/25/23 04:24
Magnesium 2.0 mg/dl (1.6-2.3) 08/23/23 19:02
Triglycerides 65 mg/dl (10-149) 08/24/23 05:53
LDL Cholesterol, Calc 37 mg/dl 08/24/23 05:53
VLDL Cholesterol, Calc 13 mg/dl (0-30) 08/24/23 05:53
HDL Cholesterol 42 mg/dl 08/24/23 05:53
LAB Results
08/24/23
09:59
Troponin I 0.014
Physical Exam
Constitutional: No acute distress
Cardiovascular: Rhythm & rate is regular, Pedal edema is absent and Systolic murmur present
Respiratory: Respiratory effort normal, Lungs clear to auscul., Wheeze Absent, Crackles Absent and Rhonchi Absent
Data Reviewed
-
Date of Service: August 25, 2023
--- NOTE | 2023-08-25 09:19 | PN.CDI ---
CDI
- -
CDI:
Physician Documentation Request
Admit Date: 08/23/23 18:16
Dear Doctor Julianna,
Patient was transferred from [facility] for TAVR evaluation. H&P states 'It was also noted he had thrombocytopenia'
Labs from 08/22 and 08/24
Laboratory Tests
08/23/23 08/25/23
19:02 04:24
WBC 4.7 L 4.6 L
RBC 4.21 L 4.41 L
Plt Count 104 L 108 L
Could you please provide a diagnosis that supports the above abnormalities and additional evaluation/ monitoring:
Pancytopenia
Thrombocytopenia only
Other
Use of terms such as suspected, likely, concern for, or probable (associated with a specific diagnosis that is being evaluated, monitored, or treated as if it exists) are acceptable and can be coded in the inpatient setting, when documented at the
time of discharge.
Thank you,
Johanna Schmidt RN, BSN
CDI Specialist
tiger text
Please use your independent medical judgment in providing your response.
--- NOTE | 2023-08-25 11:10 | PTCARENOTE ---
Discussed discharge instructions w/ pt and pt's [id number]. Encouraged questions. Pt and pt's family verbalized understanding. Pt d/c'd via ambulance at 1045.
--- NOTE | 2023-08-25 13:10 | W.DCSUMMARY ---
Discharge Summary
Discharge Data
Date of Admission: 08/23/23
Date of Discharge: 08/25/23
-
Pending Results: No
Hospital Course
Primary diagnoses:
Severe aortic stenosis
Parkinson disease with dementia
Secondary diagnoses:
Pancytopenia
Essential hypertension
Hyperlipidemia
Consultants:
Cardiology
Imaging:
None
Hospital course: 82-year-old male who was admitted the evening of August 23, 2023 as a direct admission from [facility] for pre-TAVR cardiac catheterization. The patient had advanced Parkinson's disease with dementia. Dr. Franks
discussed the case with the patient's family. It was decided that the patient would transition to hospice. He was discharged to home hospice on August 25, 2023.
Discharge Plan
-
Patient Disposition: Home with Hospice
Discharge Diagnosis/Procedures: Advanced Parkinson disease with dementia, severe aortic stenosis
Condition: Fair
Diet: Other diet
Additional Diets: IDDSI 6, fluid restrict to 1500cc/day
Activity: With assistance
Driving Restrictions: No driving
Other Services: Hospice
Referrals:
[facility] [Outside]
Agustin Augustin MD [Family Provider] - in less than 1 week
Prescriptions:
Continued
aspirin 81 MG tablet,delayed release (DR/EC)
81 mg PO QPM
metoprolol succinate 25 MG tablet extended release 24 hr
25 mg PO HS
isosorbide mononitrate 30 mg Tablet Extended Release 24 Hr
30 mg PO HS
pravastatin 80 mg Tablet
80 mg PO QPM
hyoscyamine sulfate 0.125 mg Tablet
0.125 mg PO QID
carbidopa-levodopa 25-100 mg Tablet
1 tab PO 5/D@0600,12,15,18,21
ezetimibe 10 mg Tablet
10 mg PO DAILY@1300
carbidopa-levodopa 25-100 mg Tablet
2 tab PO DAILY@0900
Zilretta 32 mg Suspension,Extended Rel Recon
32 mg INTRA-ARTICULAR [id number]
Patient Comments:
06/01/2023, gets injection in B/L knees.
diclofenac sodium 1 % gel
1 applic topical HS
acetaminophen 325 mg Tablet
650 mg PO Q4HWA 10 Days Qty: 120 0RF
acetaminophen 325 mg Tablet
650 mg PO SDS-Q4HPRN PRN (Reason: mild pain) 30 Days Qty: 30 0RF
Discontinued
lisinopril 40 MG tablet
40 mg PO DAILY
Patient Comments:
06/01/2023, per spouse, pt. takes Lisinopril 40 mg Daily; however, after calling pt.'s pharmacy ([place] [address]), they state that he has filled Lisinopril 10 mg on 11/07/2022 for a 90-day supply. This med. is not in
[facility].
Discharge Orders:
Discharge Patient (As Directed); Ordered 08/25/23
Ordered By: Roge Levine
Care Plan Goals
Care Plan Goals:
Problem: Readiness for enhanced knowledge related to diagnosis and treatment plan
Goal: Understand your diagnosis and treatment plan needs, including medications if applicable.
Instructions: Know your diagnosis, underlying causes and treatment plan options, including medications if applicable. Consult with your health care team to learn about your diagnosis and treatment plan, including medications if applicable.
Discharge Date and Time
Discharge Date/Time: 08/25/23 11:45
Print Language: NAURUAN
== END 2023-08-25 11:45 | disposition hospice, home (50) | DRG 307 ==
LOC: IVU 18:16
PROVIDERS: Clinical Nurse Specialist Family Health; Nurse Practitioner Gerontology; ADMITTING PHYSICIAN Internal Medicine; ATTENDING PHYSICIAN Internal Medicine; CONSULT PHYSICIAN Internal Medicine Cardiovascular Disease; FAMILY PHYSICIAN Family Medicine
DX: I35.0 Nonrheumatic aortic (valve) stenosis (principal); I47.10 Supraventricular tachycardia, unspecified; D61.818 Other pancytopenia; I5A Non-ischemic myocardial injury (non-traumatic); R21 Rash and other nonspecific skin eruption; D69.6 Thrombocytopenia, unspecified; I25.10 Atherosclerotic heart disease of native coronary artery without angina pectoris; I10 Essential (primary) hypertension; E78.00 Pure hypercholesterolemia, unspecified; G20.A1 Parkinson's disease without dyskinesia, without mention of fluctuations; F02.C0 Dementia in other diseases classified elsewhere, severe, without behavioral disturbance, psychotic disturbance, mood disturbance, and anxiety; R63.4 Abnormal weight loss; Z66 Do not resuscitate; Z85.46 Personal history of malignant neoplasm of prostate; Z85.51 Personal history of malignant neoplasm of bladder; Z88.2 Allergy status to sulfonamides; Z91.040 Latex allergy status; Z79.82 Long term (current) use of aspirin; Z68.23 Body mass index [BMI] 23.0-23.9, adult
CPT/HCPCS: 80048; 80053; 80061; 83735; 84484; 85025; 85027; 92610; 93005; 97163